=== PATIENT | male | born 1990 | race Asian ===

== ENCOUNTER 2018-11-25 15:58 | Emergency (ER) | payer SELFPAY ==
[~2018-11-25] VITALS: Ht 170.2 cm; Wt 78.0 kg
[2018-11-25 16:16] VITALS: BP 120/79; PULSE 64; RESP 18; Ht 170.2 cm; Wt 78.0 kg
--- NOTE | 2018-11-25 17:07 | ERD ---
ER Documentation Chief Complaint Chief Complaint pt is bib friend with c/o colds symptoms, runny nose headache ROS All systems reviewed and are negative except as per history of present illness. Allergies Allergies: Coded Allergies: No Known Allergy (Unverified , 11/25/18) Physical Exam Vitals Vital Signs Date Temp Pulse Resp B/P (MAP) Pulse Ox O2 O2 Flow FiO2 Time Delivery Rate 11/25/18 98.3 64 18 120/79 99 16:16 (93) Physical Exam Const: No acute distress Head: Atraumatic Eyes: Normal Conjunctiva ENT: Normal External Ears, Nose and Mouth. Neck: Full range of motion. No meningismus. Resp: Clear to auscultation bilaterally Cardio: Regular rate and rhythm, no murmurs Abd: Soft, non tender, non distended. Normal bowel sounds Skin: No petechiae or rashes Back: No midline or flank tenderness Ext: No cyanosis, or edema Neur: Awake and alert Psych: Normal Mood and Affect Departure Diagnosis: Primary Impression: Fever Additional Impression: Cough Condition: Stable Additional Instructions: Thank you very much for allowing us to participate in your care. Your health and safety is our top priority at [facility]. The evaluation in the emergency department has been done to rule out an acute emergency. Chronic, [id number] conditions may have not been evaluated; therefore, you need to follow up with a primary care provider in the next 48h. If symptoms persist, worsen or new symptoms develop, then patient should return to the ED immediately. Call your primary care doctor TOMORROW for an appointment during the next 2-4 days and bring all the information provided. Have prescriptions filled and follow precisely the directions on the label. If the symptoms get worse and your provider is unavailable, return to the Emergency Department immediately. JUAN DIEGO ZEE MD Nov 25, 2018 17:07
[2018-11-25] MEDS ORDERED: IBUP-1561 PO (17:09)
[2018-11-25] MEDS ORDERED: ALBU8.5H8 INH (17:09)
[2018-11-25] MEDS ORDERED: CETI10CA PO (17:09)
[2018-11-25] MEDS ORDERED: AMOX500C2 PO (17:09)
[2018-11-25] MEDS ORDERED: AZIT250T PO (17:11)
== END 2018-11-25 17:31 | disposition home or self-care (01) ==
LOC: E/R 15:58
DX: R50.9 Fever, unspecified (principal); R05 Cough
CPT/HCPCS: 99283